=== PATIENT | female | born 1970 | race African-American/Black ===

== ENCOUNTER 2017-12-10 19:46 | Inpatient (IN) | payer MEDICAID ==
[~2017-12-10] VITALS: Ht 170.2 cm; Wt 81.7 kg
[2017-12-10] MEDS ORDERED: SODIUM CHLORIDE 0.9% 1,000 ML IV ONE (23:01)
[2017-12-10] MEDS ORDERED: PIPERACILLIN/TAZ 3.375G PREMIX 50 ML IV ONE (23:15)
[2017-12-10] MEDS ORDERED: VANCOMYCIN 1 G PREMIX 200 ML IV ONE (23:15)
[2017-12-11 01:47] LABS: HEMATOCRIT. 24.7 % (36.0-48.0); HEMOGLOBIN. 7.4 g/dL (12.0-16.0); MEAN CORPUSCULAR HEMOGLOBIN 16.3 pg (28.0-32.0); MEAN PLATELET VOLUME 9.1 fl (7.4-10.4); PLATELET 411 x1000/uL (130-400); RED BLOOD CELL COUNT 4.57 mill/uL (4.2-5.4)
[2017-12-11 01:51] LABS: CHLORIDE 104 mEq/L (98-107)
[2017-12-11] MEDS ORDERED: SODIUM CHLORIDE 0.9% 1,000 ML IV SCH (02:12)
[2017-12-11 03:23] LABS: PLATELET ESTIMATE NORMAL
[2017-12-11 10:12] VITALS: BP 127/68
[2017-12-11] MEDS ORDERED: HYDROCODONE/ACETAMINOPHEN 5/325MG TABLET PO PRN (10:15)
[2017-12-11 12:30] VITALS: BP 108/62
[2017-12-11] MEDS: CLINDAMYCIN 600MG PREMIX 50 ML IV SCH ×2 (12:58→20:13)
[2017-12-11] MEDS: LEVOFLOXACIN 500MG PREMIX 100 ML IV SCH (15:40)
[2017-12-11 16:00] VITALS: BP 111/66
[2017-12-11 20:00] VITALS: BP 100/52
[2017-12-11 20:35] LABS: TOTAL IRON BINDING CAPACITY 315 ug/dL (250-450)
[2017-12-12] VITALS: BP 103/63
[2017-12-12 04:00] VITALS: BP 110/61
[2017-12-12] MEDS: CLINDAMYCIN 600MG PREMIX 50 ML IV SCH ×3 (04:49→19:55)
[2017-12-12 07:02] LABS: CHLORIDE 105 mEq/L (98-107)
[2017-12-12 07:20] LABS: MEAN CORPUSCULAR HEMOGLOBIN 15.5 pg (28.0-32.0); MEAN CORPUSCULAR VOLUME 53.4 fL (81.0-99.0); MEAN PLATELET VOLUME 8.9 fl (7.4-10.4); PLATELET 387 x1000/uL (130-400); RED BLOOD CELL COUNT 4.39 mill/uL (4.2-5.4); RED CELL DISTRIBUTION WIDTH 23.2 % (11.6-14.6)
[2017-12-12 07:56] LABS: HEMOGLOBIN. 6.8 g/dL (12.0-16.0)
[2017-12-12 07:57] LABS: HEMATOCRIT. 23.4 % (36.0-48.0)
[2017-12-12 08:00] VITALS: BP 110/60
[2017-12-12] MEDS: LEVOFLOXACIN 500MG PREMIX 100 ML IV SCH (08:18)
[2017-12-12] MEDS: DOCUSATE SODIUM 100MG CAPSULE PO SCH ×2 (09:41→17:25)
[2017-12-12 12:00] VITALS: BP 107/60
[2017-12-12] MEDS ORDERED: POTASSIUM CHLORIDE 20MEQ TABLET SR PO SCH (12:15)
[2017-12-12] MEDS: FERROUS SULFATE 325MG TABLET PO SCH ×2 (12:48→17:25)
[2017-12-12 13:28] LABS: PLATELET ESTIMATE NORMAL
[2017-12-12 16:00] VITALS: BP 105/64
[2017-12-12 20:00] VITALS: BP 101/58
[2017-12-13] VITALS (7 sets, daily range): BP systolic 90–129; BP diastolic 51–70
[2017-12-13] MEDS: CLINDAMYCIN 600MG PREMIX 50 ML IV SCH ×3 (04:30→21:03)
[2017-12-13 07:27] LABS: HEMATOCRIT 22.4 % (36.0-48.0); HEMOGLOBIN 7.1 g/dL (12.0-16.0); MEAN CORPUSCULAR HEMOGLOBIN 17.2 pg (28.0-32.0); MEAN CORPUSCULAR VOLUME 54.3 fL (81.0-99.0); PLATELET 389 x1000/uL (130-400); RED BLOOD CELL COUNT 4.13 mill/uL (4.2-5.4); RED CELL DISTRIBUTION WIDTH 23.2 % (11.6-14.6)
[2017-12-13] MEDS: FERROUS SULFATE 325MG TABLET PO SCH ×3 (08:15→18:08)
[2017-12-13] MEDS: LEVOFLOXACIN 500MG PREMIX 100 ML IV SCH (08:16)
[2017-12-13] MEDS: DOCUSATE SODIUM 100MG CAPSULE PO SCH ×2 (08:16→18:08)
[2017-12-13 11:51] LABS: CHLORIDE 106 mEq/L (98-107)
[2017-12-13 15:33] LABS: AMMONIA 32 uMol/L (<32)
[2017-12-14] VITALS: BP 103/55
[2017-12-14 04:00] VITALS: BP 111/61
[2017-12-14] MEDS: CLINDAMYCIN 600MG PREMIX 50 ML IV SCH ×3 (04:34→21:19)
[2017-12-14 07:05] LABS: CHLORIDE 106 mEq/L (98-107); HEMATOCRIT. 23.5 % (36.0-48.0); HEMOGLOBIN. 7.2 g/dL (12.0-16.0); MEAN CORPUSCULAR HEMOGLOBIN 16.6 pg (28.0-32.0); MEAN CORPUSCULAR VOLUME 54.5 fL (81.0-99.0); PLATELET 409 x1000/uL (130-400); RED BLOOD CELL COUNT 4.32 mill/uL (4.2-5.4); RED CELL DISTRIBUTION WIDTH 23.5 % (11.6-14.6)
[2017-12-14 07:10] LABS: PHOSPHORUS 3.7 mg/dL (2.5-4.9)
[2017-12-14 08:00] VITALS: BP 105/57
[2017-12-14] MEDS: DOCUSATE SODIUM 100MG CAPSULE PO SCH ×2 (08:39→16:40)
[2017-12-14] MEDS: FERROUS SULFATE 325MG TABLET PO SCH ×3 (08:39→16:40)
[2017-12-14] MEDS: LEVOFLOXACIN 500MG PREMIX 100 ML IV SCH (08:40)
[2017-12-14 12:00] VITALS: BP 111/60
[2017-12-14 12:54] LABS: PLATELET ESTIMATE SLIGHTLY INCREASED
[2017-12-14 16:00] VITALS: BP 119/62
[2017-12-14 20:00] VITALS: BP 98/63
[2017-12-15] VITALS: BP 110/67
[2017-12-15] MEDS: CLINDAMYCIN 600MG PREMIX 50 ML IV SCH ×3 (03:27→19:50)
[2017-12-15 04:00] VITALS: BP 106/59
[2017-12-15 08:00] VITALS: BP 101/57
[2017-12-15] MEDS: DOCUSATE SODIUM 100MG CAPSULE PO SCH ×2 (08:27→17:48)
[2017-12-15] MEDS: LEVOFLOXACIN 500MG TABLET PO SCH (08:27)
[2017-12-15] MEDS: FERROUS SULFATE 325MG TABLET PO SCH ×3 (08:27→17:48)
[2017-12-15 12:00] VITALS: BP 111/60
[2017-12-15 16:00] VITALS: BP 111/64
[2017-12-15 20:00] VITALS: BP 107/56
[2017-12-16] VITALS: BP 115/63
[2017-12-16] MEDS: CLINDAMYCIN 600MG PREMIX 50 ML IV SCH ×3 (03:39→20:02)
[2017-12-16 04:00] VITALS: BP 107/66
[2017-12-16 06:31] LABS: HEMATOCRIT 24.8 % (36.0-48.0); HEMOGLOBIN 7.4 g/dL (12.0-16.0); MEAN CORPUSCULAR HEMOGLOBIN 16.2 pg (28.0-32.0); MEAN CORPUSCULAR VOLUME 54.3 fL (81.0-99.0); PLATELET 462 x1000/uL (130-400); RED BLOOD CELL COUNT 4.56 mill/uL (4.2-5.4); RED CELL DISTRIBUTION WIDTH 24.7 % (11.6-14.6)
[2017-12-16 06:59] LABS: CHLORIDE 106 mEq/L (98-107)
[2017-12-16 08:00] VITALS: BP 98/56
[2017-12-16] MEDS: DOCUSATE SODIUM 100MG CAPSULE PO SCH ×2 (08:33→16:16)
[2017-12-16] MEDS: LEVOFLOXACIN 500MG TABLET PO SCH (08:33)
[2017-12-16] MEDS: FERROUS SULFATE 325MG TABLET PO SCH ×3 (08:33→16:16)
[2017-12-16 12:00] VITALS: BP 100/59
[2017-12-16 16:00] VITALS: BP 105/61
[2017-12-16 20:00] VITALS: BP 102/58
[2017-12-17] VITALS: BP 104/60
[2017-12-17] MEDS: CLINDAMYCIN 600MG PREMIX 50 ML IV SCH ×3 (03:52→20:27)
[2017-12-17] MEDS: LEVOFLOXACIN 500MG TABLET PO SCH (07:59)
[2017-12-17] MEDS: DOCUSATE SODIUM 100MG CAPSULE PO SCH ×2 (07:59→16:04)
[2017-12-17] MEDS: FERROUS SULFATE 325MG TABLET PO SCH ×3 (07:59→16:03)
[2017-12-17 08:00] VITALS: BP 117/72
[2017-12-17 11:56] VITALS: BP 101/54
[2017-12-17 16:00] VITALS: BP 90/51
[2017-12-17 20:00] VITALS: BP 98/52
[2017-12-18] VITALS: BP 92/51
[2017-12-18 04:00] VITALS: BP 96/51
[2017-12-18] MEDS: CLINDAMYCIN 600MG PREMIX 50 ML IV SCH ×2 (04:23→11:22)
[2017-12-18] MEDS: LEVOFLOXACIN 500MG TABLET PO SCH (08:18)
[2017-12-18] MEDS: FERROUS SULFATE 325MG TABLET PO SCH ×3 (08:18→16:22)
[2017-12-18] MEDS: DOCUSATE SODIUM 100MG CAPSULE PO SCH ×2 (08:19→16:22)
[2017-12-18 08:41] VITALS: BP 95/55
[2017-12-18 11:49] VITALS: BP 93/46
[2017-12-18 15:43] VITALS: BP 92/52
[2017-12-18 15:43] LABS: HEMATOCRIT 26.1 % (36.0-48.0); HEMOGLOBIN 7.7 g/dL (12.0-16.0); MEAN CORPUSCULAR HEMOGLOBIN 16.1 pg (28.0-32.0); MEAN CORPUSCULAR VOLUME 54.9 fL (81.0-99.0); PLATELET 444 x1000/uL (130-400); RED BLOOD CELL COUNT 4.76 mill/uL (4.2-5.4); RED CELL DISTRIBUTION WIDTH 25.3 % (11.6-14.6)
[2017-12-18 20:00] VITALS: BP 93/50
[2017-12-19] VITALS: BP 90/48
[2017-12-19 04:00] VITALS: BP 98/57
[2017-12-19 08:00] VITALS: BP_SYST 102; BP_SYST 103; BP_DIAS 58; BP_DIAS 59
[2017-12-19] MEDS: DOCUSATE SODIUM 100MG CAPSULE PO SCH ×2 (08:38→16:59)
[2017-12-19] MEDS: FERROUS SULFATE 325MG TABLET PO SCH ×3 (08:38→16:59)
[2017-12-19 12:00] VITALS: BP 111/64
[2017-12-19 16:00] VITALS: BP 99/52
[2017-12-19 20:00] VITALS: BP 97/55
[2017-12-20] VITALS: BP 98/49
[2017-12-20 04:00] VITALS: BP 92/57
[2017-12-20 08:00] VITALS: BP 110/66
[2017-12-20] MEDS: DOCUSATE SODIUM 100MG CAPSULE PO SCH ×2 (09:27→19:05)
[2017-12-20] MEDS: FERROUS SULFATE 325MG TABLET PO SCH ×3 (09:27→19:05)
[2017-12-20 12:00] VITALS: BP 124/72
[2017-12-20 16:00] VITALS: BP 118/75
[2017-12-20 20:00] VITALS: BP 102/58
[2017-12-21 04:00] VITALS: BP 97/55
[2017-12-21 08:00] VITALS: BP 95/55
[2017-12-21 08:38] VITALS: BP 95/55
[2017-12-21] MEDS: FERROUS SULFATE 325MG TABLET PO SCH ×3 (08:51→16:58)
[2017-12-21] MEDS: DOCUSATE SODIUM 100MG CAPSULE PO SCH ×2 (08:51→16:58)
[2017-12-21 12:00] VITALS: BP 100/61
[2017-12-21 16:05] VITALS: BP 94/53
[2017-12-21 20:00] VITALS: BP 106/60
[2017-12-22] VITALS: BP 110/63
[2017-12-22 04:00] VITALS: BP 115/73
[2017-12-22 07:46] LABS: HEMATOCRIT. 28.6 % (36.0-48.0); HEMOGLOBIN. 8.8 g/dL (12.0-16.0); MEAN CORPUSCULAR HEMOGLOBIN 17.7 pg (28.0-32.0); MEAN CORPUSCULAR VOLUME 57.5 fL (81.0-99.0); MEAN PLATELET VOLUME 8.8 fl (7.4-10.4); PLATELET 483 x1000/uL (130-400); RED BLOOD CELL COUNT 4.98 mill/uL (4.2-5.4); RED CELL DISTRIBUTION WIDTH 27.4 % (11.6-14.6)
[2017-12-22 07:59] LABS: CHLORIDE 105 mEq/L (98-107)
[2017-12-22 08:00] VITALS: BP 101/59
[2017-12-22] MEDS: FERROUS SULFATE 325MG TABLET PO SCH ×3 (09:37→17:40)
[2017-12-22] MEDS: DOCUSATE SODIUM 100MG CAPSULE PO SCH ×2 (09:37→17:40)
[2017-12-22 12:00] VITALS: BP 102/54
[2017-12-22 12:48] LABS: PLATELET ESTIMATE INCREASED
[2017-12-22 16:00] VITALS: BP 95/53
[2017-12-22 20:00] VITALS: BP 110/66
[2017-12-23] VITALS (7 sets, daily range): BP systolic 98–115; BP diastolic 54–66
[2017-12-23] MEDS: FERROUS SULFATE 325MG TABLET PO SCH ×3 (09:14→18:45)
[2017-12-23] MEDS: DOCUSATE SODIUM 100MG CAPSULE PO SCH ×2 (09:14→18:44)
[2017-12-24] VITALS: BP 102/60
[2017-12-24 04:00] VITALS: BP 92/45
[2017-12-24 08:00] VITALS: BP 102/57
[2017-12-24] MEDS: DOCUSATE SODIUM 100MG CAPSULE PO SCH ×2 (10:32→18:38)
[2017-12-24] MEDS: FERROUS SULFATE 325MG TABLET PO SCH ×3 (10:33→18:38)
[2017-12-24 12:00] VITALS: BP 112/63
[2017-12-24 16:00] VITALS: BP 101/58
[2017-12-24 20:00] VITALS: BP 97/62
[2017-12-25] VITALS (7 sets, daily range): BP systolic 101–122; BP diastolic 53–71
[2017-12-25] MEDS: DOCUSATE SODIUM 100MG CAPSULE PO SCH ×2 (08:58→17:55)
[2017-12-25] MEDS: FERROUS SULFATE 325MG TABLET PO SCH ×2 (13:04→17:55)
[2017-12-25] MEDS ORDERED: MORPHINE SULFATE 4 MG/ML CPJ (NOT FOR IM USE) IV PRN (13:45)
[2017-12-25] MEDS ORDERED: HYDROCODONE/ACETAMINOPHEN 5/325MG TABLET PO PRN (13:45)
[2017-12-26] VITALS: BP 119/67
[2017-12-26 04:00] VITALS: BP 102/61
[2017-12-26] MEDS: FERROUS SULFATE 325MG TABLET PO SCH ×3 (05:48→15:56)
[2017-12-26 08:00] VITALS: BP 94/54
[2017-12-26] MEDS: DOCUSATE SODIUM 100MG CAPSULE PO SCH ×2 (08:28→15:56)
[2017-12-26 11:57] VITALS: BP 96/52
[2017-12-26 16:00] VITALS: BP 92/44
[2017-12-26 20:00] VITALS: BP 101/62
[2017-12-27] VITALS: BP 110/61
[2017-12-27 04:00] VITALS: BP 102/55
[2017-12-27] MEDS: FERROUS SULFATE 325MG TABLET PO SCH ×2 (06:07→11:53)
[2017-12-27 08:11] VITALS: BP 102/63
[2017-12-27] MEDS: DOCUSATE SODIUM 100MG CAPSULE PO SCH (08:40)
[2017-12-27 12:01] VITALS: BP 93/55
[2017-12-27 14:57] VITALS: BP 93/55
== END 2017-12-27 14:50 | DRG 383 ==
LOC: ER 21:58 → EDBEDREQ 23:17 → 8WST 12-11 02:13 → EDBEDREQDT 12-11 02:54 → EDBEDREQTM 12-11 02:54 → EDBEDREQ 12-11 02:54 → EDBEDREQSVC 12-11 02:54 → ENRESERV 12-11 07:59
PROVIDERS: ADMIT Internal Medicine; ATTEND Internal Medicine
DX: L03.116 Cellulitis of left lower limb (principal); E44.0 Moderate protein-calorie malnutrition; I89.0 Lymphedema, not elsewhere classified; E66.01 Morbid (severe) obesity due to excess calories; D64.9 Anemia, unspecified; I87.8 Other specified disorders of veins; F29 Unspecified psychosis not due to a substance or known physiological condition; Z53.29 Procedure and treatment not carried out because of patient's decision for other reasons; Z68.28 Body mass index [BMI] 28.0-28.9, adult
CPT/HCPCS: 36415; 73590; 73620; 80048; 80053; 81025; 82140; 82270; 83540; 83550; 83605; 83735; 83880; 84100; 85025; 85027; 87040; 93306; 93970; 96365; 96366; 96367; 97022; 97110; 97162; 97166; 97535; 99285; J1956; J2543; J3370; J3490; J7030; J7040; J7060